=== PATIENT | male | born 1985 | race Two or more races ===

== ENCOUNTER 2017-08-06 13:12 | Emergency (ER) | payer SELFPAY ==
[2017-08-06 13:24] VITALS: BP 131/60; PULSE 97; RESP 18; TEMP 97.1
--- NOTE | 2017-08-06 13:41 | ED ---
Upper Extremity HPI - General Chief Complaint: Extremity Injury, Upper Stated Complaint: shoulder injury Time Seen by Provider: 08/06/17 13:25 Source: patient Mode of arrival: ambulatory Limitations: no limitations - History of Present Illness Initial Comments: 32-year-old male patient presents to the emergency department today for evaluation of right shoulder discomfort. Patient states that he was bench pressing a heavy weight today when he felt a sharp pain in his anterior aspect of his right shoulder. He states now he is able to feel a bulging over the right upper chest and into his right upper arm. He feels that he may have pulled a tendon or ligament. He denies any numbness or tingling to the arm. States that certain movements of the shoulder makes the pain worse. Patient denies any headache, neck pain, back pain, chest pain, shortness of breath, dizziness, weakness, abdominal pain, nausea, vomiting, or difficulties with bowel movements or urination. - Related Data Allergies Allergy/AdvReac Type Severity Reaction Status Date / Time No Known Allergies Allergy Verified 08/06/17 13:24 Review of Systems ROS Statement: Those systems with pertinent positive or pertinent negative responses have been documented in the HPI. ROS Other: All systems not noted in ROS Statement are negative. Past Medical History Past Medical History: No Reported History History of Any Multi-Drug Resistant Organisms: None Reported Past Surgical History: Appendectomy, Orthopedic Surgery Past Psychological History: No Psychological Hx Reported Smoking Status: Unknown if ever smoked Past Alcohol Use History: None Reported Past Drug Use History: None Reported General Exam Limitations: no limitations General appearance: alert, in no apparent distress, other (This is a well- developed, well-nourished adult male patient in no acute distress. Vital signs upon presentation are temperature 97.1F, pulse 97, respirations 18, blood pressure 131/60, pulse ox 96% on room air.) Eye exam: Present: normal appearance, PERRL, EOMI. Absent: scleral icterus, conjunctival injection, periorbital swelling ENT exam: Present: normal exam, normal oropharynx, mucous membranes moist Respiratory exam: Present: normal lung sounds bilaterally. Absent: respiratory distress, wheezes, rales, rhonchi, stridor Cardiovascular Exam: Present: regular rate, normal rhythm, normal heart sounds. Absent: systolic murmur, diastolic murmur, rubs, gallop, clicks GI/Abdominal exam: Present: soft, normal bowel sounds. Absent: distended, tenderness, guarding, rebound, rigid Extremities exam: Present: normal inspection, full ROM, tenderness (Over the right anterior shoulder, soft tissues.), normal capillary refill, other ( Tenderness and ecchymosis noted over the right anterior shoulder. Patient has good range of motion to the right shoulder however does have increased pain with abduction. Skin to the right upper chest is pink, warm, and dry. Cap refills less than 3 seconds. Radial pulses are 2+ and equal bilaterally.). Absent: pedal edema, joint swelling, calf tenderness Neurological exam: Present: alert, oriented X3, CN II-XII intact Psychiatric exam: Present: normal affect, normal mood Skin exam: Present: warm, dry, intact, normal color. Absent: rash Course Vital Signs 08/06/17 13:20 Temperature 97.1 F L Pulse Rate 97 Respiratory 18 Rate Blood Pressure 131/60 O2 Sat by Pulse 96 Oximetry Medical Decision Making - Medical Decision Making 32-year-old male patient percents to the emergency department today for evaluation of right anterior shoulder discomfort and tenderness. Physical examination does reveal some mild soft tissue swelling. Neurovascular status is intact. X-ray of the shoulder is are cool. Did discuss the patient that he most likely has a shoulder strain. He is instructed to apply ice for the first 24 hours and then apply warm moist heat. He is instructed to follow-up with orthopedics for further evaluation if his symptoms do not improve over the next 7-10 days. He is instructed to take anti-inflammatory pain medication for symptom relief. He is instructed to return here immediately for any new, worsening, or concerning symptoms. He verbalizes understanding and agrees with this plan. - Radiology Data Radiology results: report reviewed, image reviewed Right shoulder x-rays obtained shows no fracture or dislocation. The glenohumeral joint space appears within normal limits. Mild acromioclavicular arthropathy is seen as marginal osteophytes. The visualized ribs are intact and unremarkable. Impression by Dr. De La Vega shows no acute fracture dislocation of the right shoulder. Given the patient's symptoms are markedly performed for evaluation of the rotator cuff on a nonemergent basis. Disposition Clinical Impression: Shoulder strain Disposition: HOME SELF-CARE Condition: Good Instructions: Shoulder Pain (ED) Additional Instructions: Take anti-inflammatory pain medication for pain relief. Apply ice for the first 24 hours and switch to warm moist heat. Follow-up with orthopedics if your symptoms don't improve over the next 7-10 days. Return here immediately for any new, worsening, or concerning symptoms. Referrals: None,Stated [Primary Care Provider] - 1-2 days Time of Disposition: 14:03
--- NOTE | 2017-08-06 13:59 | XR ---
EXAMINATION TYPE: XR shoulder complete RT DATE OF EXAM: 08/06/2017 CLINICAL HISTORY: Right shoulder pain after lifting injury TECHNIQUE: Three views of the right shoulder are obtained. COMPARISON: None. FINDINGS: There is no acute fracture/dislocation evident in the right shoulder. The glenohumeral sabiha int space appears within normal limits. Mild acromioclavicular arthropathy is seen as marginal osteop hytes. The visualized ribs are intact and unremarkable. IMPRESSION: There is no acute fracture or dislocation in the right shoulder. Given the patient's sym ptoms MR could be performed for evaluation of the rotator cuff on a nonemergent basis.
== END 2017-08-06 14:12 | disposition home or self-care (01) ==
LOC: EC 13:12
DX: S46.911A Strain of unspecified muscle, fascia and tendon at shoulder and upper arm level, right arm, initial encounter (principal); M12.811 Other specific arthropathies, not elsewhere classified, right shoulder; X50.0XXA Overexertion from strenuous movement or load, initial encounter; Y93.89 Activity, other specified
CPT/HCPCS: 99283